=== PATIENT | male | born 1945 | race Caucasian/White ===

== ENCOUNTER 2018-07-26 13:13 | Emergency (ER) | payer SELFPAY ==
[2018-07-26] MEDS ORDERED: SOD CHLORIDE 0.9% 1,000 ML IV (13:56)
[2018-07-26] MEDS ORDERED: LORAZEPAM 2 MG INJ IV (13:56)
[2018-07-26 14:01] LABS: ADD MAN DIFF? NO
[2018-07-26 14:05] LABS: BASOPHIL # 0.1 10^3/ul (0.0-0.1); BASOPHILS % 1.1 % (0.0-2.0); EOSINOPHILS # 0.8 10^3/ul (0.0-0.5); EOSINOPHILS % 11.5 % (0.0-7.0); HEMATOCRIT 27.8 % (42.0-52.0); HEMOGLOBIN 8.4 g/dl (14.0-18.0); LYMPHOCYTES % 41.8 % (15.0-51.0); MEAN CORPUSCULAR HEMOGLOBIN 24.5 pg (29.0-33.0); MEAN CORPUSCULAR HGB CONC 30.2 g/dl (32.0-37.0); MEAN PLATELET VOLUME 10.4 fl (7.4-10.4); MONOCYTE # 0.9 10^3/ul (0.3-0.9); MONOCYTES % 12.9 % (0.0-11.0); NEUTROPHIL # 2.3 10^3/ul (1.6-7.5); NEUTROPHILS % 32.4 % (39.0-77.0); PLATELET COUNT 219 10^3/UL (140-415); RED BLOOD COUNT 3.43 10^6/ul (4.70-6.10); RED CELL DISTRIBUTION WIDTH 20.4 % (11.5-14.5)
[2018-07-26 14:05] LABS: WHITE BLOOD COUNT 7.2 10^3/ul (4.8-10.8)
[2018-07-26 14:13] LABS: ALANINE AMINOTRANSFERASE 13 IU/L (13-69); ALBUMIN 4.1 g/dl (3.3-4.9); ALBUMIN/GLOBULIN RATIO 0.97; ALKALINE PHOSPHATASE 84 IU/L (42-121); ANION GAP 10 (5-13); ASPARTATE AMINO TRANSFERASE 26 IU/L (15-46); BILIRUBIN,INDIRECT 0.1 mg/dl (0-1.1); BILIRUBIN,TOTAL 0.1 mg/dl (0.2-1.3); BLOOD UREA NITROGEN 20 mg/dl (7-20); CALCIUM 9.4 mg/dl (8.4-10.2); CARBON DIOXIDE 20 mmol/L (21-31); CHLORIDE 114 mmol/L (97-110); CREATINE KINASE 160 IU/L (23-200); CREATININE 2.17 mg/dl (0.61-1.24); GLUCOSE 101 mg/dl (70-220); POTASSIUM 5.2 mmol/L (3.5-5.1); SODIUM 144 mmol/L (135-144); TOTAL PROTEIN 8.3 g/dl (6.1-8.1)
[2018-07-26 14:24] LABS: INR 0.99; PROTIME 13.2 Sec (11.9-14.9)
[2018-07-26 14:25] LABS: CK INDEX 3.6; PARTIAL THROMBOPLASTIN TIME 35.4 Sec (23.0-35.0); TROPONIN-I < 0.012 ng/ml (0.000-0.120)
[2018-07-26 14:26] LABS: CK-MB 5.81 ng/ml (0.0-2.4)
== END 2018-07-26 15:28 | disposition left against medical advice (07) ==
LOC: E/R 13:13
DX: R53.1 Weakness (principal); I10 Essential (primary) hypertension; F17.210 Nicotine dependence, cigarettes, uncomplicated
CPT/HCPCS: 80053; 82550; 82553; 82962; 84484; 85025; 85610; 85730; 99283